=== PATIENT | female | born 1970 | race Caucasian/White ===

== ENCOUNTER 2017-02-07 12:05 | Emergency (ER) | payer MEDICARE | END 2017-02-07 14:40 | disposition home or self-care (01) | LOC: D.ER 12:05 | DX: M54.5 Low back pain (principal); S39.012A Strain of muscle, fascia and tendon of lower back, initial encounter; X58.XXXA Exposure to other specified factors, initial encounter; Y93.9 Activity, unspecified; Y92.029 Unspecified place in mobile home as the place of occurrence of the external cause ==

== ENCOUNTER 2017-11-04 16:48 | Emergency (ER) | payer MEDICARE ==
[~2017-11-04] VITALS: Ht 160 cm; Wt 97.7 kg
[2017-11-04 16:53] VITALS: Ht 160 cm; Wt 97.7 kg
[2017-11-04] MEDS ORDERED: LISINOPRIL10 MG PO (16:57)
[2017-11-04] MEDS ORDERED: LYRICA75 MG PO (16:57)
[2017-11-04] MEDS ORDERED: NORCO 7.5/325 T1 TA1 PO (16:57)
[2017-11-04] MEDS ORDERED: DESERYL100 MG PO (16:58)
[2017-11-04 17:18] LABS: BASOPHILS 0.3 % (0-2); HEMATOCRIT 40.7 % (36.0-48.0); HEMOGLOBIN 13.5 g/dL (12-16); IMMATURE GRANULOCYTES 0.2 % (0-5); LYMPHOCYTES 35.2 % (15-50); MCH 28.8 pg (26.0-34.0); MCHC 33.2 g/dL (31.0-37.0); MCV 86.8 fL (80.0-100.0); MEAN PLATELET VOLUME 9.7 fL (7.4-10.4); MONOCYTES 4.9 % (2-11); NEUTROPHILS 57.4 % (40-80); PLATELET COUNT 208 10x3/uL (130-400); RBC 4.69 10x6/uL (4.00-5.40); WBC 10.5 10x3/uL (4.8-10.8)
[2017-11-04 17:33] LABS: ALBUMIN 3.5 g/dL (3.4-5.0); ALKALINE PHOSPHATASE 60 U/L (46-116); ALT (SGPT) 20 U/L (10-68); BILIRUBIN - TOTAL 0.14 mg/dL (0.2-1.3); CALC OSMOLALITY 278 mosm/kg (275-300); CALCIUM 8.5 mg/dL (8.5-10.1); CARBON DIOXIDE 29.4 mmol/L (21.0-32.0); CHLORIDE - SERUM 105 mmol/L (98-107); CREATININE - SERUM 0.8 mg/dL (0.6-1.3); GLUCOSE 84 mg/dL (74-106); POTASSIUM - SERUM 3.7 mmol/L (3.5-5.1); PROTEIN - SERUM 6.6 g/dL (6.4-8.2); SODIUM 141 mmol/L (136-145); UREA NITROGEN 9 mg/dL (7-18); eGFR NON AFRICAN AMERICAN 81 mL/min (90-120)
[2017-11-04 17:37] LABS: APPEARANCE CLEAR (CLEAR); BILIRUBIN NEGATIVE (NEGATIVE); COLOR YELLOW (YELLOW); GLUCOSE NEGATIVE (NEGATIVE); KETONE NEGATIVE (NEGATIVE); NITRITE NEGATIVE (NEGATIVE); PROTEIN NEGATIVE (NEGATIVE); SPECIFIC GRAVITY 1.015 (1.005-1.020); UROBILINOGEN NORMAL (NORMAL)
[2017-11-04] MEDS ORDERED: TORADOL10 MG PO (17:53)
[2017-11-04 18:50] VITALS: BP 122/76
== END 2017-11-04 18:52 | disposition home or self-care (01) ==
LOC: D.ER 16:48
PROVIDERS: Family Medicine
DX: D25.9 Leiomyoma of uterus, unspecified (principal); R30.0 Dysuria; I10 Essential (primary) hypertension; F17.200 Nicotine dependence, unspecified, uncomplicated

== ENCOUNTER 2017-11-29 01:35 | Emergency (ER) | payer MEDICARE ==
[~2017-11-29] VITALS: Ht 160 cm; Wt 99.1 kg
[~2017-11-29 01:35] MED LIST: DESERYL100 MG PO; LISINOPRIL10 MG PO; LYRICA75 MG PO; NORCO 7.5/325 T1 TA1 PO; TORADOL10 MG PO
[2017-11-29 01:39] VITALS: BP 142/97; Ht 160 cm; Wt 99.1 kg
[2017-11-29] MEDS ORDERED: PERCOCET 5-3251 TAB PO (01:52)
== END 2017-11-29 02:02 | disposition home or self-care (01) ==
LOC: D.ER 01:35
DX: M51.36 Other intervertebral disc degeneration, lumbar region (principal); M54.16 Radiculopathy, lumbar region; M41.9 Scoliosis, unspecified; I10 Essential (primary) hypertension; F17.200 Nicotine dependence, unspecified, uncomplicated

== ENCOUNTER 2017-12-22 21:46 | Emergency (ER) | payer MEDICARE ==
[2017-11-29 01:39] VITALS: BMI 38.7
[~2017-12-22 21:46] MED LIST changes: +PERCOCET 5-3251 TAB PO
== END 2017-12-22 21:47 | disposition home or self-care (01) ==
LOC: D.ER 21:46
DX: M54.5 Low back pain (principal)

== ENCOUNTER 2018-01-17 18:41 | Emergency (ER) | payer MEDICARE ==
[~2018-01-17] VITALS: Ht 160 cm; Wt 97.5 kg
[2018-01-17 18:48] VITALS: Ht 160 cm; Wt 97.5 kg
[2018-01-17 21:16] VITALS: BP 128/98
== END 2018-01-17 21:17 | disposition home or self-care (01) ==
LOC: D.ER 18:41
DX: S99.921A Unspecified injury of right foot, initial encounter (principal); W18.30XA Fall on same level, unspecified, initial encounter; Y93.89 Activity, other specified; Y92.019 Unspecified place in single-family (private) house as the place of occurrence of the external cause; M54.5 Low back pain; I10 Essential (primary) hypertension

== ENCOUNTER 2018-04-26 14:17 | Emergency (ER) | payer MEDICARE ==
[~2018-04-26] VITALS: Ht 160 cm; Wt 99.8 kg
[2018-04-26 14:26] VITALS: Ht 160 cm; Wt 99.8 kg
[2018-04-26] MEDS ORDERED: TORADOL10 MG PO (18:00)
[2018-04-26 19:14] VITALS: BP 118/85
== END 2018-04-26 19:15 | disposition home or self-care (01) ==
LOC: D.ER 14:17
DX: M54.16 Radiculopathy, lumbar region (principal); G89.29 Other chronic pain; R06.02 Shortness of breath; I10 Essential (primary) hypertension